=== PATIENT | male | born 1995 | race African-American/Black ===

== ENCOUNTER 2019-09-07 08:54 | Emergency (ER) | payer MEDICAID ==
[~2019-09-07] VITALS: Ht 167.6 cm; Wt 62.0 kg
[2019-09-07 09:45] VITALS: BP 152/80
[2019-09-07] MEDS ORDERED: HYDROCODONE/ACETAMINOPHEN 5/325MG TABLET PO ONE (09:45)
== END 2019-09-07 09:46 | disposition home or self-care (01) ==
LOC: ER 08:54
DX: R68.84 Jaw pain (principal)
CPT/HCPCS: 99283